=== PATIENT | male | born 1960 | race Caucasian/White ===

== ENCOUNTER 2023-09-21 09:12 | Outpatient (CLI) | payer OTHER | END 2023-09-21 09:17 | disposition home or self-care (01) | LOC: RAD 09:12 | PROVIDERS: ATTEND Internal Medicine Cardiovascular Disease | DX: M12.9 Arthropathy, unspecified (principal); M46.47 Discitis, unspecified, lumbosacral region ==

== ENCOUNTER 2023-10-07 07:09 | Outpatient (CLI) | payer OTHER | END 2023-10-07 12:32 | disposition home or self-care (01) | LOC: MRI 07:09 | PROVIDERS: ATTEND Internal Medicine Cardiovascular Disease | DX: M46.48 Discitis, unspecified, sacral and sacrococcygeal region (principal) | CPT/HCPCS: 72148 ==

== ENCOUNTER 2024-09-07 09:38 | Outpatient (CLI) | payer OTHER | END 2024-09-07 10:00 | disposition home or self-care (01) | LOC: PPH VACUNA 09:38 | PROVIDERS: ATTEND Emergency Medicine Pediatric Emergency Medicine | DX: Z23 Encounter for immunization (principal) ==

== ENCOUNTER → 2024-09-21 06:10 | Outpatient (CLI) | payer OTHER ==
[2024-09-21 07:12] LABS: URINE APPEARANCE Clear; URINE BILIRRUBIN Negative (NEGATIVE); URINE BLOOD Negative; URINE COLOR Yellow; URINE GLUCOSE Negative (NEGATIVE); URINE KETONE Trace (NEGATIVE); URINE LEUKOCYTE Negative; URINE NITRATE Negative; URINE PROTEIN Negative (NEGATIVE); URINE UROBILINOGEN 0.2 E.U./dl
[2024-09-21 07:16] LABS: URINE BACTERIA 7.5 uL (0.0-1933); URINE WBC 2.6 uL (0.0-23.2)
[2024-09-21 07:32] LABS: URINE CAST 0.15 uL (0.0-1.40); URINE EPITHELIAL CELLS 0.6 uL (0.0-38.8); URINE RBC 0.9 uL (0.0-20.8)
== END | disposition home or self-care (01) ==
LOC: LAB 06:10
PROVIDERS: ATTEND Urology
DX: R97.20 Elevated prostate specific antigen [PSA] (principal); R31.1 Benign essential microscopic hematuria

== ENCOUNTER 2024-10-14 15:55 | Emergency (ER) | payer OTHER ==
[~2024-10-14] VITALS: Ht 165.1 cm; Wt 81.6 kg
[2024-10-14] MEDS ORDERED: ATACAND4 MG PO (16:47)
[2024-10-14] MEDS ORDERED: CEFTRIAXONE SODIUM 1,000 MG VIAL IM STA (17:34)
[2024-10-14] MEDS ORDERED: GUAIFENESIN 200 MG/10 ML BLIST.PACK PO STA (17:34)
[2024-10-14 18:10] LABS: HEMATOCRIT 36.6 % (39.0-48.0); HEMOGLOBIN 12.6 g/dL (13-16.00); MEAN CELL VOLUME 91.9 fL (80.0-100.00); MEAN CORPUSCULAR HEMOGLOBIN 31.7 pg (27.00-32.0); MEAN CORPUSCULAR HGB CONC 34.5 g/dl (32.0-36.0); PLATELET COUNT 208 K/uL (150-450); RED BLOOD COUNT 3.98 M/uL (4.00-6.00); RED CELL DISTRIBUTION WIDTH 12.8 % (11.5-14.5)
== END 2024-10-14 19:09 | disposition home or self-care (01) ==
LOC: ER 15:57
PROVIDERS: General Practice
DX: R53.81 Other malaise (principal); R05.9 Cough, unspecified; Z20.822 Contact with and (suspected) exposure to COVID-19
CPT/HCPCS: 36415; 96372; 99282; J0696

== ENCOUNTER → 2024-10-31 | Outpatient (CLI) | payer OTHER ==
[~2024-10-31] MED LIST: ATACAND4 MG PO
== END | disposition home or self-care (01) ==
LOC: RAD 10:52
PROVIDERS: ATTEND Internal Medicine Cardiovascular Disease
DX: M12.9 Arthropathy, unspecified (principal)

== ENCOUNTER 2025-06-01 06:08 | Outpatient (CLI) | payer OTHER ==
[~2025-06-01 06:08] MED LIST changes: +DICLOFENAC POTA50 MG PO
[2025-06-01 07:15] LABS: BASO % 0.5 % (0.1-1.2); EOS # 0.23 (0.04-0.54); EOS % 3.5 % (0.7-7.0); LYMPH # 2.76 (1.18-3.74); LYMPH % 41.7 % (19.3-53.1); MEAN PLATELET VOLUME 10.80 fl (9.4-12.4); MONO # 0.75 (0.24-0.82); MONO % 11.3 % (4.7-12.5); NEUT # 2.83 (1.56-6.13); NEUT % 42.7 % (34.0-71.1); RED CELL DISTRIBUTION WIDTH 12.6 % (11.6-14.4)
[2025-06-01 07:16] LABS: URINE APPEARANCE Clear; URINE BILIRRUBIN Negative (NEGATIVE); URINE BLOOD Negative; URINE COLOR Yellow; URINE GLUCOSE Negative (NEGATIVE); URINE KETONE Negative (NEGATIVE); URINE LEUKOCYTE Negative; URINE NITRATE Negative; URINE PROTEIN Negative (NEGATIVE); URINE UROBILINOGEN 0.2 E.U./dl
[2025-06-01 07:35] LABS: URINE BACTERIA 1.1 uL (0.0-1933); URINE CAST 0.00 uL (0.0-1.40); URINE EPITHELIAL CELLS 0.1 uL (0.0-38.8); URINE RBC 0.4 uL (0.0-20.8); URINE WBC 0.3 uL (0.0-23.2)
[2025-06-01 08:14] LABS: ALT/SGPT 63.0 U/L (12-78); AST/SGOT 26.0 U/L (15-37); BILIRUBIN TOTAL 0.42 mg/dL (0.3-1.2); BUN CREA RATIO 20.0 (7.0-25.0); CHOL HDL RATIO 4.5 (0-5.0); CREATININE SERUM 0.89 mg/dL (0.70-1.30); GFR 85.52; GLOBULINA 3.3 G/DL (2.4-3.5); GLUCOSE FASTING 102.0 mg/dL (65-100); HDL 44.0 mg/dl (40-60); LDL 129.0 mg/dl (0-130); OSMOLALITY SERUM 278.0 MOSM/KG (275-295); T4 TOTAL 8.23 UG/DL (4.5-12.1); TSH 3.13 uIU/mL (0.358-3.74); VLDL 23.0 (0-39)
== END 2025-06-01 06:12 | disposition home or self-care (01) ==
LOC: LAB 06:08
PROVIDERS: ATTEND Internal Medicine Cardiovascular Disease
DX: I10 Essential (primary) hypertension (principal); E03.9 Hypothyroidism, unspecified; E78.2 Mixed hyperlipidemia; R73.03 Prediabetes

== ENCOUNTER → 2025-07-17 09:07 | Outpatient (CLI) | payer OTHER ==
[2025-07-18 07:11] LABS: HEPATITIS A ANTIBODY IGG Positive (Negative); HEPATITIS B SURFACE ANTIBODY Reactive (.); HEPATITIS C VIRUS ANTIBODY Non Reactive (Non Reactive)
== END | disposition home or self-care (01) ==
LOC: LAB 09:07
DX: A64 Unspecified sexually transmitted disease (principal); B19.10 Unspecified viral hepatitis B without hepatic coma

== ENCOUNTER → 2025-09-28 06:12 | Outpatient (CLI) | payer OTHER ==
[2025-09-28 07:29] LABS: URINE APPEARANCE Clear; URINE BILIRRUBIN Negative (NEGATIVE); URINE BLOOD Negative; URINE COLOR Yellow; URINE GLUCOSE Negative (NEGATIVE); URINE KETONE Negative (NEGATIVE); URINE LEUKOCYTE Negative; URINE NITRATE Negative; URINE PROTEIN Negative (NEGATIVE); URINE UROBILINOGEN 0.2 E.U./dl
[2025-09-28 07:32] LABS: URINE BACTERIA 5.9 uL (0.0-1933); URINE EPITHELIAL CELLS 1.9 uL (0.0-38.8); URINE RBC 2.7 uL (0.0-20.8); URINE WBC 2.1 uL (0.0-23.2)
[2025-09-28 07:42] LABS: URINE CAST 0.14 uL (0.0-1.40)
== END | disposition home or self-care (01) ==
LOC: LAB 06:12
PROVIDERS: ATTEND Urology
DX: R97.20 Elevated prostate specific antigen [PSA] (principal); R31.1 Benign essential microscopic hematuria